=== PATIENT | female | born 1975 ===

== ENCOUNTER 2018-02-10 14:25 | Emergency (ER) | payer OTHER ==
--- NOTE | 2018-02-10 14:53 | EDPHY ---
H & P Time Seen by Provider: 02/10/18 14:34 HPI/ROS: CHIEF COMPLAINT: Chest pain with cough HISTORY OF PRESENT ILLNESS: The patient is a 42 y/o female complaining of chest pain and cough, onset 3 days ago. Initially, she noted rhinorrhea and sore throat on Wednesday, three days ago. Wednesday evening, she developed a cough accompanied by pain in the center of her chest when coughing. Over the past two days, the chest pain when coughing has worsened and her coughing has increased in frequency. She reports the cough is producing small amounts of mucus. She has an associated fever. Continues to have a sore throat. She denies myalgias , shortness of breath, fever or any other associated symptoms. She did receive an influenza vaccine this season. REVIEW OF SYSTEMS: A 10 point review of systems was performed and is negative with the exception of the elements mentioned in the history of present illness. Past Medical/Surgical History: Denies Social History: Lives in [place], employed, nonsmoker, minimal alcohol use Smoking Status: Never smoked Physical Exam: General Appearance: Alert, pleasant, nontoxic appearing, hoarse voice Eyes: Pupils equal and round, no conjunctival pallor or injection ENT, Mouth: Mucous membranes moist Neck: Normal inspection Respiratory: Normal inspection, no chest wall tenderness, lungs are clear to auscultation Cardiovascular: Regular rate and rhythm, no murmur or rub Gastrointestinal: Abdomen is soft and non-tender Neurological: A&O, nonfocal exam Skin: Warm and dry, no rash Extremities: Nontender, no pedal edema Psychiatric: Mood and affect normal Constitutional: Initial Vital Signs Temperature (C) 37 C 02/10/18 14:35 Heart Rate 90 02/10/18 14:35 Respiratory Rate 16 02/10/18 14:35 Blood Pressure 118/78 02/10/18 14:35 O2 Sat (%) 97 02/10/18 14:35 O2 Delivery Mode Room Air Allergies/Adverse Reactions: "all antibiotics" Allergy (Uncoded 02/10/18 14:39) Medical Decision Making - Diagnostics EKG Interpretation: EKG interpreted by me reveals normal sinus rhythm, rate 87, no ST or T segment changes. Interpretation: Normal EKG Imaging Results: Chest X-Ray 02/10/18 14:55 Impression: Normal. ED Course/Re-evaluation: EKG interpreted by me reveals normal sinus rhythm, rate 87, no ST/T changes. Interpretation: normal EKG The patient complains of chest only when coughing, onset two days ago. She has had a cold for the past three days. Over the past two days the chest pain and cough have worsened prompting the visit. She denies myalgias or difficulty breathing. On exam, she is nontoxic appearing and her lungs are clear to auscultation. Her EKG is normal. Likely, her symptoms are due to acute bronchitis. Plan for chest X-ray for further investigation of symptom etiology. 3:21 PM- Chest X-ray is normal. No evidence of pneumonia, rib fracture or pneumothorax. The patient will be administered 6 mg [address] orally for [address] She has been informed of the results of her workup ad instructed to follow up with her PCP for lack of improvement. Return precautions given. The patient agrees to this course of action. Differential Diagnosis: Differential diagnosis includes though it is not limited to pneumonia, pneumothorax, pulmonary embolism, aortic dissection, pericarditis, acute coronary syndrome. - Data Points Medications Given: Discontinued Medications Dexamethasone (Decadron) 6 mg PO EDNOW ONE Stop: 02/10/18 15:04 Last Admin: 02/10/18 15:08 Dose: 6 mg Departure - Departure Disposition: Home, Routine, Self-Care Clinical Impression: Acute bronchitis Condition: Good Instructions: Acute Bronchitis (ED) Additional Instructions: 1. Take 600 mg of ibuprofen every 8 hours with food as needed for pain for 2 to 3 days. 2. Follow-up with your primary care provider for lack of improvement in 2 to 3 days. 3. Return to the emergency department for any difficulty breathing, uncontrollable fever, or other worsening of condition. Referrals: [facility],. [Clinic] - As per Instructions Stand Alone Forms: Work Excuse Report Scribed for: Genoveva Treviño Report Scribed by: Marisela Adams Date of Report: 02/10/18 Time of Report: 14:52 Physician Review and Approval Statement: 02/10/18 14:52 Portions of this note were transcribed by a medical center manager. I personally performed a history, physical exam, medical decision making, and confirmed accuracy of information the transcribed note.
--- NOTE | 2018-02-10 14:58 | CPEKG ---
Heart Rate: 87 RR Interval: 690 P-R Interval: 148 QRSD Interval: 102 QT Interval: 372 QTC Interval: 448 P [place]: 65 QRS [place]: 54 T Wave [place]: 49 EKG Severity - NORMAL ECG - EKG Impression: SINUS RHYTHM Electronically Signed By: Genoveva Treviño 10-Feb-2018 22:44:05
[2018-02-10] MEDS ORDERED: DEXAMETHASONE 4 MG TAB PO ONE (15:03)
[2018-02-10 15:36] VITALS: BP 112/67
== END 2018-02-10 15:35 | disposition home or self-care (01) ==
DX: J20.9 Acute bronchitis, unspecified (principal)